=== PATIENT | male | born 1990 | race American Indian/Alaskan Native ===

== ENCOUNTER 2018-01-18 13:44 | Emergency (ER) | payer OTHER ==
--- NOTE | 2018-01-18 14:18 | Emergency Department Report ---
ED Altered Mental Status HPI - General Chief Complaint: Seizure Stated Complaint: SEIZURES Time Seen by Provider: 01/18/18 14:18 Source: EMS Mode of arrival: Stretcher Limitations: No Limitations - History of Present Illness Initial Comments: History of witnessed seizure tonic-clonic possible noncompliance possible Prior history here for evaluation of altered mental status patient arrives nonverbal but with good airway not following commands combative possibly postictal status post possible tonic-clonic seizure with noncompliance with Nadia RHOADES Complaint: altered mental status, confusion, other (postictal) -: Gradual, hour(s), unknown Severity: mild, moderate Associated Symptoms: denies other symptoms. denies: chest pain, cough, diaphoresis, fever/chills, headaches, malaise, nausea/vomiting, rash, seizure, shortness of breath, syncope, weakness, foul smelling urine, difficulty walking , diarrhea, incontinence - Related Data Allergies Allergy/AdvReac Type Severity Reaction Status Date / Time Unable to Assess Allergy Unverified 01/18/18 14:11 ED Review of Systems ROS: Stated complaint: SEIZURES Other details as noted in HPI Comment: Unobtainable due to pts medical conditions (denies trauma patient was initially postictal but did become awake and alert and denied other review of systems) Constitutional: denies: diaphoresis, fever, malaise ENT: denies: ear pain, throat pain, dental pain, hearing loss Respiratory: denies: cough, orthopnea Cardiovascular: denies: chest pain, palpitations, dyspnea on exertion, orthopnea , syncope, paroxysmal nocturnal dyspnea Endocrine: denies: excessive sweating, increased hunger, increased thirst, increased urine Gastrointestinal: denies: constipation, hematemesis, melena, hematochezia Skin: denies: rash, lesions, change in color, change in hair/nails, pruritus Neurological: denies: headache, weakness, numbness, paresthesias, confusion, abnormal gait, vertigo ED Physical Exam - General Limitations: No Limitations General appearance: alert, in no apparent distress, anxious - Head Head exam: Present: atraumatic, normocephalic - Eye Eye exam: Present: PERRL, EOMI - ENT ENT exam: Present: normal exam, normal orophraynx - Neck Neck exam: Present: normal inspection. Absent: tenderness, meningismus - Respiratory Respiratory exam: Present: normal lung sounds bilaterally. Absent: respiratory distress, wheezes, rales, rhonchi, stridor, chest wall tenderness, accessory muscle use, decreased breath sounds, prolonged expiratory - Cardiovascular Cardiovascular Exam: Present: regular rate, normal rhythm. Absent: normal heart sounds, systolic murmur, diastolic murmur, rubs, gallop - GI/Abdominal GI/Abdominal exam: Present: soft. Absent: distended, tenderness, guarding, rebound, rigid, mass, pulsatile mass - Extremities Exam Extremities exam: Present: normal inspection, normal capillary refill, other ( no trauma). Absent: pedal edema, joint swelling - Back Exam Back exam: Present: normal inspection, CVA tenderness (L). Absent: CVA tenderness (R), paraspinal tenderness, vertebral tenderness - Neurological Exam Neurological exam: Present: alert, oriented X3, CN II-XII intact. Absent: motor sensory deficit - Skin Skin exam: Absent: cyanosis, diaphoretic, erythema, urticaria, vesicles, petechiae, pallor - Assessment Assessment Interval: Baseline - Level of Consciousness 1a. Level of Consciousness: alert - LOC Questions 1b. LOC Questions: answers correctly - LOC Command 1c. LOC Commands: performs tasks correctly - Best Gaze 2. Best Gaze: normal - Visual 3. Visual: no visual loss - Facial Palsy 4. Facial Palsy: normal symmetrical movement - Motor Arm 5b. Motor Arm Right: no drift 5a. Motor Arm Left: no drift - Motor Leg 6a. Motor Leg Left: no drift 6b. Motor Leg Right: no drift - Limb Ataxia 7. Limb Ataxia: absent - Sensory 8. Sensory: normal - Best Language 9. Best Language: no aphasia - Dysarthria 10. Dysarthria: normal - Extinction and Inattention 11. Extinction/Inattention: no abnormality - Scoring Total Score: 0 Stroke Severity: No Stroke Symptoms - Lab Data Result diagrams: 01/18/18 14:49 01/18/18 16:36 Lab Results 01/18/18 01/18/18 01/18/18 Range/Units 14:36 14:49 16:36 WBC 18.9 H (4.5-11.0) K/mm3 RBC 5.96 H (3.65-5.03) M/mm3 Hgb 17.3 H (11.8-15.2) gm/dl Hct 54.5 H (35.5-45.6) % MCV 92 (84-94) fl MCH 29 (28-32) pg MCHC 32 (32-34) % RDW 15.0 (13.2-15.2) % Plt Count 181 (140-440) K/mm3 Sodium 135 L (137-145) mmol/L Potassium 4.3 (3.6-5.0) mmol/L Chloride 101.0 (98-107) mmol/L Carbon Dioxide 16 L (22-30) mmol/L Anion Gap 22 mmol/L BUN 14 (9-20) mg/dL Creatinine 1.0 (0.8-1.5) mg/dL Estimated GFR > 60 ml/min BUN/Creatinine Ratio 14 % Glucose 94 (75-100) mg/dL POC Glucose 117 H (70-105) Calcium 9.4 (8.4-10.2) mg/dL Total Creatine Kinase (55-170) units/L Plasma/Serum Alcohol (0-0.07) % 01/18/18 01/18/18 Range/Units 16:36 16:36 WBC (4.5-11.0) K/mm3 RBC (3.65-5.03) M/mm3 Hgb (11.8-15.2) gm/dl Hct (35.5-45.6) % MCV (84-94) fl MCH (28-32) pg MCHC (32-34) % RDW (13.2-15.2) % Plt Count (140-440) K/mm3 Sodium (137-145) mmol/L Potassium (3.6-5.0) mmol/L Chloride (98-107) mmol/L Carbon Dioxide (22-30) mmol/L Anion Gap mmol/L BUN (9-20) mg/dL Creatinine (0.8-1.5) mg/dL Estimated GFR ml/min BUN/Creatinine Ratio % Glucose (75-100) mg/dL POC Glucose (70-105) Calcium (8.4-10.2) mg/dL Total Creatine Kinase 261 H (55-170) units/L Plasma/Serum Alcohol < 0.01 (0-0.07) % - Radiology Data Radiology results: report reviewed - Medical Decision Making Patient does have a history of tonic-clonic seizure disorder he does have history of noncompliance he had 2 witnessed seizures but is awake alert male. He was loaded Keppra, CT is unremarkable except for some sinus disease. Patient had a normal evaluation otherwise. Laboratory studies were essentially unremarkable Her keppra level is pending. Patient is no evidence of rhabdo at this time he does have mild CK elevation was is consistent with tonic-clonic seizure normal renal function ;elevated WBC is related to seizure activity but no evidence of meningitis he is afebrile seizure is consistent with his chronic underlying seizure disorder with noncompliance. He states that he just moved here from [place] and they were unable to refill his Keppra we will refill his Keppra and he should follow-up with the on-call doctor and return if problems, a and o x 3 adn stable outptp f/u Critical care attestation.: If time is entered above; I have spent that time in minutes in the direct care of this critically ill patient, excluding procedure time. ED Disposition Clinical Impression: Seizure, Noncompliance Disposition: DC-01 TO HOME OR SELFCARE Is pt being admited?: No Condition: Stable Instructions: Recurrent Seizures Adult (ED) Additional Instructions: Return if new or alarming symptoms call 911 take her medicine see the doctor listed Time of Disposition: 19:33
[2018-01-18] MEDS ORDERED: VERSED IV NR (15:00)
[2018-01-18] MEDS ORDERED: KEPPRA 500 MG/NS 0.82% 100 ML 500 MG/100 ML BAG IV ONE ×2 (15:00→18:46)
[2018-01-18 15:14] LABS: Hematocrit 54.5 % (35.5-45.6); Hemoglobin 17.3 gm/dl (11.8-15.2); Mean Corpuscular HGB Conc 32 % (32-34); Mean Corpuscular Hemoglobin 29 pg (28-32); Mean Corpuscular Volume 92 fl (84-94); Red Blood Count 5.96 M/mm3 (3.65-5.03)
[2018-01-18 15:17] LABS: Platelet Count 181 K/mm3 (140-440)
--- NOTE | 2018-01-18 15:56 | Cat Scan Report ---
FINAL REPORT PROCEDURE: CT HEAD/BRAIN WO CON TECHNIQUE: Computerized tomography of the head was performed without contrast material. HISTORY: Altered mental status COMPARISON: No prior studies are available for comparison. FINDINGS: Brain: Brain density appears normal. No evidence of intracranial hemorrhage. No parenchymal hemorrhage, mass lesions or mass effect are seen. No abnormal extraxial fluid collects or masses are seen. There is a small amount of nonspecific dural calcification visualized right parietal lobe posteriorly. Ventricles: Ventricles are normal size and are midline. Bone Windows: No evidence of skull fracture. Paranasal sinuses: There is [id number] mucosal thickening in the left frontal sinus. There also appears to be a small air-fluid level suggesting acute sinusitis. Mild patchy mucosal disease seen in a few of the ethmoid air cells and also in the sphenoid sinuses. There is mucosal thickening seen in the maxillary sinuses however only a small portion of the maxillary sinuses are included on this exam. Mastoid air cells: Clear . IMPRESSION: Diffuse paranasal sinus disease as described. An air-fluid level however is seen in the left frontal sinus which suggests acute sinusitis. Please see above comments. Mild nonspecific dural calcification right parietal lobe posteriorly. No acute intracranial abnormalities are identified.
[2018-01-18 16:58] LABS: BUN/Creatinine Ratio 14; Blood Urea Nitrogen 14 mg/dL (9-20); Calcium 9.4 mg/dL (8.4-10.2); Hemolysis Index 59
[2018-01-18] MEDS ORDERED: LEVAQUIN 500MG/100ML 500 MG/100 ML BAG IV ONE (17:27)
[2018-01-18] MEDS ORDERED: TYLENOL ONE (18:43)
[2018-01-18] MEDS ORDERED: TYLENOL PO ONE (18:46)
[2018-01-18] MEDS ORDERED: KEPPRA PO ONE (18:48)
[2018-01-18 22:27] VITALS: BP 125/77
== END 2018-01-18 20:30 | disposition home or self-care (01) ==
LOC: ED 13:44
DX: R56.9 Unspecified convulsions (principal)
CPT/HCPCS: 36415; 70450; 80048; 80177; 82550; 82962; 85027; 96374; 96375; 96376; 99284; G0480; J1953; J2250; 80320

== ENCOUNTER 2018-02-27 20:49 | Inpatient (IN) | payer OTHER ==
[2018-02-27] MEDS ORDERED: KEPPRA 1,000 MG/NS 0.75% 100ML 1,000 MG/100 ML BAG IV ONE (20:59)
--- NOTE | 2018-02-27 21:04 | Emergency Department Report ---
ED Seizure HPI - General Stated Complaint: SEIZURE Time Seen by Provider: 02/27/18 20:56 Source: EMS Mode of arrival: Stretcher Limitations: Altered Mental Status - History of Present Illness Initial Comments: 27-year-old male with a past medical history of seizures presents to the hospital after having 2 seizures prior to arrival. EMS received a call for seizure. Patient was combative upon their arrival. Received Versed 5 mg IM and had another seizure and therefore received another Versed 5 mg IM. Both seizures lasted just over 1 minute. Patient presents lethargic but withdraws to pain. He apparently is new to the area has been noncompliant with his seizure medication - Related Data Previous Rx's Medication Instructions Recorded Last Taken Type levETIRAcetam [Keppra] 500 mg PO BID #30 tablet 01/18/18 Unknown Rx Allergies Allergy/AdvReac Type Severity Reaction Status Date / Time Penicillins Allergy Hives Verified 02/27/18 21:10 ED Review of Systems ROS: Stated complaint: SEIZURE Other details as noted in HPI Comment: All other systems reviewed and negative ED Past Medical Hx - Past Medical History Hx Seizures: Yes - Medications Home Medications: Home Medications Medication Instructions Recorded Confirmed Last Taken Type levETIRAcetam [Keppra] 500 mg PO BID #30 tablet 01/18/18 Unknown Rx ED Physical Exam - Other Other exam information: General: Lethargic Head exam: Atraumatic, normocephalic Eyes exam: Normal appearance, pupils equal reactive to light ENT: Moist mucous membrane, normal oropharynx Neck exam: Normal inspection, full range of motion Respiratory exam: Clear to auscultation bilateral, no wheezes, rales, crackles Cardiovascular: Normal rate and rhythm, normal heart sounds Abdomen: Soft, nondistended, and nontender, with normal bowel sounds, no rebound, or guarding Extremity: Full range of motion normal inspection no deformity Back: Normal Inspection, full range of motion, no tenderness Neurologic: Lethargic, localizes pain. Does not open eyes spontaneously or speaking at this time Psychiatric: normal affect, normal mood Skin: Warm, dry, intact ED Course Vital Signs 02/27/18 02/27/18 02/27/18 20:50 21:01 21:15 Temperature Pulse Rate 83 93 H 107 H Respiratory 34 H 18 25 H Rate Blood Pressure 111/47 O2 Sat by Pulse 93 99 100 Oximetry 02/27/18 02/27/18 02/27/18 21:30 21:52 22:00 Temperature Pulse Rate 104 H 99 H 93 H Respiratory 18 17 16 Rate Blood Pressure 111/47 111/41 112/65 O2 Sat by Pulse Oximetry 02/27/18 02/27/18 02/27/18 23:00 23:15 23:30 Temperature Pulse Rate 86 84 81 Respiratory 16 15 16 Rate Blood Pressure 112/56 113/57 118/68 O2 Sat by Pulse 99 100 99 Oximetry 02/27/18 02/27/18 02/28/18 23:44 23:45 00:00 Temperature 98.2 F Pulse Rate 79 80 Respiratory 18 17 Rate Blood Pressure 128/67 131/68 O2 Sat by Pulse 97 98 Oximetry 02/28/18 02/28/18 02/28/18 00:15 00:30 00:45 Temperature Pulse Rate 83 81 78 Respiratory 16 17 16 Rate Blood Pressure 111/68 111/63 116/58 O2 Sat by Pulse 95 93 Oximetry 02/28/18 02/28/18 01:00 01:15 Temperature Pulse Rate 76 75 Respiratory 14 15 Rate Blood Pressure 112/56 122/65 O2 Sat by Pulse 96 100 Oximetry ED Medical Decision Making - Lab Data Result diagrams: 02/28/18 06:51 02/28/18 06:51 Lab Results 02/27/18 02/27/18 02/27/18 Range/Units 21:11 21:11 21:11 WBC 29.3 H (4.5-11.0) K/mm3 RBC 5.77 H (3.65-5.03) M/mm3 Hgb 16.9 H (11.8-15.2) gm/dl Hct 55.5 H (35.5-45.6) % MCV 96 H (84-94) fl MCH 29 (28-32) pg MCHC 31 L (32-34) % RDW 15.4 H (13.2-15.2) % Plt Count 314 (140-440) K/mm3 Add Manual Diff Complete Total Counted 200 Seg Neuts % (Manual) 74.0 H (40.0-70.0) % Band Neutrophils % 2.5 % Lymphocytes % (Manual) 12.0 L (13.4-35.0) % Reactive Lymphs % (Man) 0 % Monocytes % (Manual) 10.0 H (0.0-7.3) % Eosinophils % (Manual) 0.5 (0.0-4.3) % Basophils % (Manual) 0.5 (0.0-1.8) % Metamyelocytes % 0.5 % Myelocytes % 0 % Promyelocytes % 0 % Blast Cells % 0 % Nucleated RBC % Not Reportable Seg Neutrophils # Man 21.7 H (1.8-7.7) K/mm3 Band Neutrophils # 0.7 K/mm3 Lymphocytes # (Manual) 3.5 (1.2-5.4) K/mm3 Abs React Lymphs (Man) 0.0 K/mm3 Monocytes # (Manual) 2.9 H (0.0-0.8) K/mm3 Eosinophils # (Manual) 0.1 (0.0-0.4) K/mm3 Basophils # (Manual) 0.1 (0.0-0.1) K/mm3 Metamyelocytes # 0.1 K/mm3 Myelocytes # 0.0 K/mm3 Promyelocytes # 0.0 K/mm3 Blast Cells # 0.0 K/mm3 WBC Morphology Not Reportable Hypersegmented Neuts Not Reportable Hyposegmented Neuts Not Reportable Hypogranular Neuts Not Reportable Smudge Cells Not Reportable Toxic Granulation Not Reportable Toxic Vacuolation Not Reportable Dohle Bodies Not Reportable Pelger-Huet Anomaly Not Reportable Alexander Rods Not Reportable Platelet Estimate Appears normal Clumped Platelets Not Reportable Plt Clumps, EDTA Not Reportable Large Platelets Not Reportable Giant Platelets Not Reportable Platelet Satelliting Not Reportable Plt Morphology Comment Not Reportable RBC Morphology Normal Dimorphic RBCs Not Reportable Polychromasia Not Reportable Hypochromasia Not Reportable Poikilocytosis Not Reportable Anisocytosis Not Reportable Microcytosis Not Reportable Macrocytosis Not Reportable Spherocytes Not Reportable Pappenheimer Bodies Not Reportable Sickle Cells Not Reportable Target Cells Not Reportable Tear Drop Cells Not Reportable Ovalocytes Not Reportable Helmet Cells Not Reportable Pérez-[place] Bodies Not Reportable [place] Rings Not Reportable Abram Cells Not Reportable Bite Cells Not Reportable Crenated Cell Not Reportable Elliptocytes Not Reportable Acanthocytes (Spur) Not Reportable Rouleaux Not Reportable Hemoglobin C Crystals Not Reportable Schistocytes Not Reportable Malaria parasites Not Reportable Alvaro Bodies Not Reportable Hem Pathologist Commnt No POC ABG pH (7.35-7.45) POC ABG pCO2 (35-45) POC ABG pO2 (80-105) POC ABG HCO3 POC ABG Total CO2 POC ABG O2 Sat POC ABG Base Excess FiO2 % Sodium 137 (137-145) mmol/L Potassium 4.5 (3.6-5.0) mmol/L Chloride 90.2 L (98-107) mmol/L Carbon Dioxide 5 L* (22-30) mmol/L Anion Gap 46 mmol/L BUN 12 (9-20) mg/dL Creatinine 1.6 H (0.8-1.5) mg/dL Estimated GFR > 60 ml/min BUN/Creatinine Ratio 8 % Glucose 141 H (75-100) mg/dL POC Glucose (70-105) Lactic Acid (0.7-2.0) mmol/L Calcium 10.3 H (8.4-10.2) mg/dL Magnesium 3.70 H (1.7-2.3) mg/dL Total Creatine Kinase (55-170) units/L Urine Color (Yellow) Urine Turbidity (Clear) Urine pH (5.0-7.0) Ur Specific [place] (1.003-1.030) Urine Protein (Negative) mg/dL Urine Glucose (UA) (Negative) mg/dL Urine Ketones (Negative) mg/dL Urine Blood (Negative) Urine Nitrite (Negative) Urine Bilirubin (Negative) Urine Urobilinogen (<2.0) mg/dL Ur Leukocyte Esterase (Negative) Urine WBC (Auto) (0.0-6.0) /HPF Urine RBC (Auto) (0.0-6.0) /HPF U Epithel Cells (Auto) (0-13.0) /HPF Urine Mucus /HPF Urine Opiates Screen Urine Methadone Screen Ur Barbiturates Screen Ur Phencyclidine Scrn Ur Amphetamines Screen U Benzodiazepines Scrn Urine Cocaine Screen U Marijuana (THC) Screen Drugs of Abuse Note Plasma/Serum Alcohol < 0.01 (0-0.07) % 02/27/18 02/27/18 02/27/18 Range/Units 21:13 21:50 22:08 WBC (4.5-11.0) K/mm3 RBC (3.65-5.03) M/mm3 Hgb (11.8-15.2) gm/dl Hct (35.5-45.6) % MCV (84-94) fl MCH (28-32) pg MCHC (32-34) % RDW (13.2-15.2) % Plt Count (140-440) K/mm3 Add Manual Diff Total Counted Seg Neuts % (Manual) (40.0-70.0) % Band Neutrophils % % Lymphocytes % (Manual) (13.4-35.0) % Reactive Lymphs % (Man) % Monocytes % (Manual) (0.0-7.3) % Eosinophils % (Manual) (0.0-4.3) % Basophils % (Manual) (0.0-1.8) % Metamyelocytes % % Myelocytes % % Promyelocytes % % Blast Cells % % Nucleated RBC % Seg Neutrophils # Man (1.8-7.7) K/mm3 Band Neutrophils # K/mm3 Lymphocytes # (Manual) (1.2-5.4) K/mm3 Abs React Lymphs (Man) K/mm3 Monocytes # (Manual) (0.0-0.8) K/mm3 Eosinophils # (Manual) (0.0-0.4) K/mm3 Basophils # (Manual) (0.0-0.1) K/mm3 Metamyelocytes # K/mm3 Myelocytes # K/mm3 Promyelocytes # K/mm3 Blast Cells # K/mm3 WBC Morphology Hypersegmented Neuts Hyposegmented Neuts Hypogranular Neuts Smudge Cells Toxic Granulation Toxic Vacuolation Dohle Bodies Pelger-Huet Anomaly Alexander Rods Platelet Estimate Clumped Platelets Plt Clumps, EDTA Large Platelets Giant Platelets Platelet Satelliting Plt Morphology Comment RBC Morphology Dimorphic RBCs Polychromasia Hypochromasia Poikilocytosis Anisocytosis Microcytosis Macrocytosis Spherocytes Pappenheimer Bodies Sickle Cells Target Cells Tear Drop Cells Ovalocytes Helmet Cells Pérez-[place] Bodies [place] Rings [place] Cells Bite Cells Crenated Cell Elliptocytes Acanthocytes (Spur) Rouleaux Hemoglobin C Crystals Schistocytes Malaria parasites Alvaro Bodies Hem Pathologist Commnt POC ABG pH (7.35-7.45) POC ABG pCO2 (35-45) POC ABG pO2 (80-105) POC ABG HCO3 POC ABG Total CO2 POC ABG O2 Sat POC ABG Base Excess FiO2 % Sodium (137-145) mmol/L Potassium (3.6-5.0) mmol/L Chloride (98-107) mmol/L Carbon Dioxide (22-30) mmol/L Anion Gap mmol/L BUN (9-20) mg/dL Creatinine (0.8-1.5) mg/dL Estimated GFR ml/min BUN/Creatinine Ratio % Glucose (75-100) mg/dL POC Glucose 128 H (70-105) Lactic Acid 12.10 H* (0.7-2.0) mmol/L Calcium (8.4-10.2) mg/dL Magnesium (1.7-2.3) mg/dL Total Creatine Kinase 874 H (55-170) units/L Urine Color (Yellow) Urine Turbidity (Clear) Urine pH (5.0-7.0) Ur Specific [place] (1.003-1.030) Urine Protein (Negative) mg/dL Urine Glucose (UA) (Negative) mg/dL Urine Ketones (Negative) mg/dL Urine Blood (Negative) Urine Nitrite (Negative) Urine Bilirubin (Negative) Urine Urobilinogen (<2.0) mg/dL Ur Leukocyte Esterase (Negative) Urine WBC (Auto) (0.0-6.0) /HPF Urine RBC (Auto) (0.0-6.0) /HPF U Epithel Cells (Auto) (0-13.0) /HPF Urine Mucus /HPF Urine Opiates Screen Urine Methadone Screen Ur Barbiturates Screen Ur Phencyclidine Scrn Ur Amphetamines Screen U Benzodiazepines Scrn Urine Cocaine Screen U Marijuana (THC) Screen Drugs of Abuse Note Plasma/Serum Alcohol (0-0.07) % 02/27/18 02/27/18 02/27/18 Range/Units 22:29 22:50 22:50 WBC (4.5-11.0) K/mm3 RBC (3.65-5.03) M/mm3 Hgb (11.8-15.2) gm/dl Hct (35.5-45.6) % MCV (84-94) fl MCH (28-32) pg MCHC (32-34) % RDW (13.2-15.2) % Plt Count (140-440) K/mm3 Add Manual Diff Total Counted Seg Neuts % (Manual) (40.0-70.0) % Band Neutrophils % % Lymphocytes % (Manual) (13.4-35.0) % Reactive Lymphs % (Man) % Monocytes % (Manual) (0.0-7.3) % Eosinophils % (Manual) (0.0-4.3) % Basophils % (Manual) (0.0-1.8) % Metamyelocytes % % Myelocytes % % Promyelocytes % % Blast Cells % % Nucleated RBC % Seg Neutrophils # Man (1.8-7.7) K/mm3 Band Neutrophils # K/mm3 Lymphocytes # (Manual) (1.2-5.4) K/mm3 Abs React Lymphs (Man) K/mm3 Monocytes # (Manual) (0.0-0.8) K/mm3 Eosinophils # (Manual) (0.0-0.4) K/mm3 Basophils # (Manual) (0.0-0.1) K/mm3 Metamyelocytes # K/mm3 Myelocytes # K/mm3 Promyelocytes # K/mm3 Blast Cells # K/mm3 WBC Morphology Hypersegmented Neuts Hyposegmented Neuts Hypogranular Neuts Smudge Cells Toxic Granulation Toxic Vacuolation Dohle Bodies Pelger-Huet Anomaly Alexander Rods Platelet Estimate Clumped Platelets Plt Clumps, EDTA Large Platelets Giant Platelets Platelet Satelliting Plt Morphology Comment RBC Morphology Dimorphic RBCs Polychromasia Hypochromasia Poikilocytosis Anisocytosis Microcytosis Macrocytosis Spherocytes Pappenheimer Bodies Sickle Cells Target Cells Tear Drop Cells Ovalocytes Helmet Cells Pérez-[place] Bodies [place] Rings [place] Cells Bite Cells Crenated Cell Elliptocytes Acanthocytes (Spur) Rouleaux Hemoglobin C Crystals Schistocytes Malaria parasites Alvaro Bodies Hem Pathologist Commnt POC ABG pH 7.231 L (7.35-7.45) POC ABG pCO2 40.5 (35-45) POC ABG pO2 80 (80-105) POC ABG HCO3 17.0 POC ABG Total CO2 18 POC ABG O2 Sat 93 POC ABG Base Excess -11 FiO2 32 % Sodium (137-145) mmol/L Potassium (3.6-5.0) mmol/L Chloride (98-107) mmol/L Carbon Dioxide (22-30) mmol/L Anion Gap mmol/L BUN (9-20) mg/dL Creatinine (0.8-1.5) mg/dL Estimated GFR ml/min BUN/Creatinine Ratio % Glucose (75-100) mg/dL POC Glucose (70-105) Lactic Acid (0.7-2.0) mmol/L Calcium (8.4-10.2) mg/dL Magnesium (1.7-2.3) mg/dL Total Creatine Kinase (55-170) units/L Urine Color Yellow (Yellow) Urine Turbidity Clear (Clear) Urine pH 5.0 (5.0-7.0) Ur Specific [place] 1.011 (1.003-1.030) Urine Protein 100 mg/dl (Negative) mg/dL Urine Glucose (UA) Neg (Negative) mg/dL Urine Ketones Neg (Negative) mg/dL Urine Blood Mod (Negative) Urine Nitrite Neg (Negative) Urine Bilirubin Neg (Negative) Urine Urobilinogen < 2.0 (<2.0) mg/dL Ur Leukocyte Esterase Neg (Negative) Urine WBC (Auto) 5.0 (0.0-6.0) /HPF Urine RBC (Auto) 2.0 (0.0-6.0) /HPF U Epithel Cells (Auto) < 1.0 (0-13.0) /HPF Urine Mucus Few /HPF Urine Opiates Screen Presumptive negative Urine Methadone Screen Presumptive negative Ur Barbiturates Screen Presumptive negative Ur Phencyclidine Scrn Presumptive negative Ur Amphetamines Screen Presumptive negative U Benzodiazepines Scrn Presumptive positive Urine Cocaine Screen Presumptive positive U Marijuana (THC) Screen Presumptive positive Drugs of Abuse Note Disclamer Plasma/Serum Alcohol (0-0.07) % 02/27/18 Range/Units 23:39 WBC (4.5-11.0) K/mm3 RBC (3.65-5.03) M/mm3 Hgb (11.8-15.2) gm/dl Hct (35.5-45.6) % MCV (84-94) fl MCH (28-32) pg MCHC (32-34) % RDW (13.2-15.2) % Plt Count (140-440) K/mm3 Add Manual Diff Total Counted Seg Neuts % (Manual) (40.0-70.0) % Band Neutrophils % % Lymphocytes % (Manual) (13.4-35.0) % Reactive Lymphs % (Man) % Monocytes % (Manual) (0.0-7.3) % Eosinophils % (Manual) (0.0-4.3) % Basophils % (Manual) (0.0-1.8) % Metamyelocytes % % Myelocytes % % Promyelocytes % % Blast Cells % % Nucleated RBC % Seg Neutrophils # Man (1.8-7.7) K/mm3 Band Neutrophils # K/mm3 Lymphocytes # (Manual) (1.2-5.4) K/mm3 Abs React Lymphs (Man) K/mm3 Monocytes # (Manual) (0.0-0.8) K/mm3 Eosinophils # (Manual) (0.0-0.4) K/mm3 Basophils # (Manual) (0.0-0.1) K/mm3 Metamyelocytes # K/mm3 Myelocytes # K/mm3 Promyelocytes # K/mm3 Blast Cells # K/mm3 WBC Morphology Hypersegmented Neuts Hyposegmented Neuts Hypogranular Neuts Smudge Cells Toxic Granulation Toxic Vacuolation Dohle Bodies Pelger-Huet Anomaly Alexander Rods Platelet Estimate Clumped Platelets Plt Clumps, EDTA Large Platelets Giant Platelets Platelet Satelliting Plt Morphology Comment RBC Morphology Dimorphic RBCs Polychromasia Hypochromasia Poikilocytosis Anisocytosis Microcytosis Macrocytosis Spherocytes Pappenheimer Bodies Sickle Cells Target Cells Tear Drop Cells Ovalocytes Helmet Cells Pérez-[place] Bodies [place] Rings Abram Cells Bite Cells Crenated Cell Elliptocytes Acanthocytes (Spur) Rouleaux Hemoglobin C Crystals Schistocytes Malaria parasites Alvaro Bodies Hem Pathologist Commnt POC ABG pH (7.35-7.45) POC ABG pCO2 (35-45) POC ABG pO2 (80-105) POC ABG HCO3 POC ABG Total CO2 POC ABG O2 Sat POC ABG Base Excess FiO2 % Sodium (137-145) mmol/L Potassium (3.6-5.0) mmol/L Chloride (98-107) mmol/L Carbon Dioxide (22-30) mmol/L Anion Gap mmol/L BUN (9-20) mg/dL Creatinine (0.8-1.5) mg/dL Estimated GFR ml/min BUN/Creatinine Ratio % Glucose (75-100) mg/dL POC Glucose (70-105) Lactic Acid 3.00 H* (0.7-2.0) mmol/L Calcium (8.4-10.2) mg/dL Magnesium (1.7-2.3) mg/dL Total Creatine Kinase (55-170) units/L Urine Color (Yellow) Urine Turbidity (Clear) Urine pH (5.0-7.0) Ur Specific [place] (1.003-1.030) Urine Protein (Negative) mg/dL Urine Glucose (UA) (Negative) mg/dL Urine Ketones (Negative) mg/dL Urine Blood (Negative) Urine Nitrite (Negative) Urine Bilirubin (Negative) Urine Urobilinogen (<2.0) mg/dL Ur Leukocyte Esterase (Negative) Urine WBC (Auto) (0.0-6.0) /HPF Urine RBC (Auto) (0.0-6.0) /HPF U Epithel Cells (Auto) (0-13.0) /HPF Urine Mucus /HPF Urine Opiates Screen Urine Methadone Screen Ur Barbiturates Screen Ur Phencyclidine Scrn Ur Amphetamines Screen U Benzodiazepines Scrn Urine Cocaine Screen U Marijuana (THC) Screen Drugs of Abuse Note Plasma/Serum Alcohol (0-0.07) % - Radiology Data Radiology results: report reviewed FINAL REPORT PROCEDURE: CT HEAD WO CONTRAST TECHNIQUE: Computerized tomography of the head was performed without contrast material. HISTORY: SEIZURE X2 LASTING APPROX 90 SECONDS EACH. COMPARISON: January 18, 2018 FINDINGS: Skull and scalp: Normal. Paranasal sinuses: Mucosal thickening. Ventricles and subarachnoid spaces: Normal. Cerebrum: No evidence of hemorrhage, acute infarction or mass . Cerebellum and brainstem: No evidence of hemorrhage, acute infarction or mass. Vasculature: Normal. Comments: Right parietal extra-axial calcification consistent with meningioma. IMPRESSION: No acute intracranial abnormality. Stable right-sided calcifications suggesting meningioma. cxr portable Cxr no acute cardiopulmonary abnormality - Medical Decision Making CT head unremarkable. Patient's mental status is slowly improving. Patient has a leukocytosis without focal source of infection. Suspect stress/multiple seizures to cause her to see. Lactic acid initially being down where it was a slightly elevated due to seizures as opposed to sepsis. UDS positive for multiple substances including cocaine which can lower seizure threshold as well. Pt received keppra in the Ed. Pt received Keppra. - Differential Diagnosis seizure, medication noncompliance, intracranial abnormality Critical Care Time: No Critical care attestation.: If time is entered above; I have spent that time in minutes in the direct care of this critically ill patient, excluding procedure time. ED Disposition Clinical Impression: Seizures, Noncompliance with medication regimen, Lactic acidosis, Leukocytosis , Cocaine abuse Disposition: OP ADMIT IP TO THIS HOSP Is pt being admited?: Yes Condition: Stable Time of Disposition: 23:00 (admit to hospitalist)
[2018-02-27 21:42] LABS: BUN/Creatinine Ratio 8; Blood Urea Nitrogen 12 mg/dL (9-20); Calcium 10.3 mg/dL (8.4-10.2); Hemolysis Index 94
[2018-02-27 21:47] LABS: Mean Corpuscular HGB Conc 31 % (32-34); Mean Corpuscular Hemoglobin 29 pg (28-32); Mean Corpuscular Volume 96 fl (84-94); Platelet Count 314 K/mm3 (140-440); Red Blood Count 5.77 M/mm3 (3.65-5.03); Red Cell Distribution Width 15.4 % (13.2-15.2)
[2018-02-27 21:48] LABS: Hemoglobin 16.9 gm/dl (11.8-15.2)
[2018-02-27 21:49] LABS: Hematocrit 55.5 % (35.5-45.6)
[2018-02-27] MEDS ORDERED: NACL 0.9% 1000 ML IV ONE (21:59)
[2018-02-27 22:32] LABS: Band Neutrophils # (Manual) 0.7 K/mm3; Basophils % (Manual) 0.5 % (0.0-1.8); Eosinophils % (Manual) 0.5 % (0.0-4.3); Total Cells Counted 200
[2018-02-27 22:46] LABS: RBC Morphology Normal
--- NOTE | 2018-02-27 22:48 | Cat Scan Report ---
FINAL REPORT PROCEDURE: CT HEAD WO CONTRAST TECHNIQUE: Computerized tomography of the head was performed without contrast material. HISTORY: SEIZURE X2 LASTING APPROX 90 SECONDS EACH. COMPARISON: January 18, 2018 FINDINGS: Skull and scalp: Normal. Paranasal sinuses: Mucosal thickening. Ventricles and subarachnoid spaces: Normal. Cerebrum: No evidence of hemorrhage, acute infarction or mass . Cerebellum and brainstem: No evidence of hemorrhage, acute infarction or mass. Vasculature: Normal. Comments: Right parietal extra-axial calcification consistent with meningioma. IMPRESSION: No acute intracranial abnormality. Stable right-sided calcifications suggesting meningioma.
--- NOTE | 2018-02-27 22:56 | XRay Report ---
FINAL REPORT PROCEDURE: XRAY CHEST SINGLE VIEW TECHNIQUE: Chest radiograph anteroposterior view. CPT 97687 HISTORY: CENTRAL LINE PLACEMENT COMPARISON: No prior studies are available for comparison. FINDINGS: Heart: Normal. Mediastinum/Vessels: Normal. Lungs/Pleural space: Normal. Bony thorax: No acute osseous abnormality. Life support devices: Monitoring devices. IMPRESSION: No acute cardiopulmonary abnormality.
[2018-02-27] MEDS ORDERED: ATIVAN IV PRN (23:41)
[2018-02-27] MEDS ORDERED: SODIUM CHLORIDE FLUSH SYRINGE 10 ML IV PRN (23:41)
[2018-02-27] MEDS ORDERED: ZOFRAN IV PRN (23:41)
--- NOTE | 2018-02-27 23:43 | History and Physical Report ---
History of Present Illness Date of examination: 02/27/18 History of present illness: 27 year old man with history of seizures comes to the ER for seizure at home, It was reported that he had 2 seizures, versed 5 mg was given twice. Nuse reported that the patient is from [place], he ran out of his seizure medications. Review of systems is unobtainable. PAST MEDICAL HISTORY: seizure PAST SURGICAL HISTORY: Unknown SOCIAL HISTORY: Unknown FAMILY HISTORY:n Unknown Medications and Allergies Allergies Allergy/AdvReac Type Severity Reaction Status Date / Time Penicillins Allergy Hives Verified 02/27/18 21:10 Home Medications Medication Instructions Recorded Confirmed Last Taken Type levETIRAcetam [Keppra] 500 mg PO BID #30 tablet 01/18/18 Unknown Rx Exam - Physical Exam Narrative exam: Gen. appearance: Patient lying in bed, no apparent distress HEENT: Normocephalic, atraumatic, pupils equally round and reactive to light, unable to do extraocular movement and no sclericterus,. No JVD or thyromegaly or nodule,neck supple, no carotid bruit ,mucous membranes moist, unable to examine oral cavity Heart: S1, S2, regular rate and rhythm Lungs: Clear bilaterally, breathing comfortable Abdomen: Positive bowel sounds, nontender, nondistended, no organomegaly Extremity: No edema, no cyanosis, clubbing Skin: No rash, nodules, warm, dry Neuro: sedated - Constitutional Vitals: Temp Pulse Resp BP Pulse Ox 93 H 16 112/65 100 02/27/18 22:00 02/27/18 22:00 02/27/18 22:00 02/27/18 21:15 Results - Labs CBC & Chem 7: 02/27/18 21:11 02/28/18 00:04 Labs: Abnormal lab results 02/27/18 02/27/18 02/27/18 Range/Units 21:11 21:11 21:13 WBC 29.3 H (4.5-11.0) K/mm3 RBC 5.77 H (3.65-5.03) M/mm3 Hgb 16.9 H (11.8-15.2) gm/dl Hct 55.5 H (35.5-45.6) % MCV 96 H (84-94) fl MCHC 31 L (32-34) % RDW 15.4 H (13.2-15.2) % Seg Neuts % (Manual) 74.0 H (40.0-70.0) % Lymphocytes % (Manual) 12.0 L (13.4-35.0) % Monocytes % (Manual) 10.0 H (0.0-7.3) % Seg Neutrophils # Man 21.7 H (1.8-7.7) K/mm3 Monocytes # (Manual) 2.9 H (0.0-0.8) K/mm3 POC ABG pH (7.35-7.45) Chloride 90.2 L (98-107) mmol/L Carbon Dioxide 5 L* (22-30) mmol/L Creatinine 1.6 H (0.8-1.5) mg/dL Glucose 141 H (75-100) mg/dL POC Glucose 128 H (70-105) Lactic Acid (0.7-2.0) mmol/L Calcium 10.3 H (8.4-10.2) mg/dL Magnesium 3.70 H (1.7-2.3) mg/dL Total Creatine Kinase (55-170) units/L 02/27/18 02/27/18 02/27/18 Range/Units 21:50 22:08 22:29 WBC (4.5-11.0) K/mm3 RBC (3.65-5.03) M/mm3 Hgb (11.8-15.2) gm/dl Hct (35.5-45.6) % MCV (84-94) fl MCHC (32-34) % RDW (13.2-15.2) % Seg Neuts % (Manual) (40.0-70.0) % Lymphocytes % (Manual) (13.4-35.0) % Monocytes % (Manual) (0.0-7.3) % Seg Neutrophils # Man (1.8-7.7) K/mm3 Monocytes # (Manual) (0.0-0.8) K/mm3 POC ABG pH 7.231 L (7.35-7.45) Chloride (98-107) mmol/L Carbon Dioxide (22-30) mmol/L Creatinine (0.8-1.5) mg/dL Glucose (75-100) mg/dL POC Glucose (70-105) Lactic Acid 12.10 H* (0.7-2.0) mmol/L Calcium (8.4-10.2) mg/dL Magnesium (1.7-2.3) mg/dL Total Creatine Kinase 874 H (55-170) units/L - Imaging and Cardiology EKG: image reviewed Chest x-ray: image reviewed CT Scan - head: report reviewed Assessment and Plan Assessment Seizure, acute on chronic SIRS Metabolic acidosis, due to seizure Rhabdomyolysis Dehydration Plan Admit to medicine Start IV ativan as needed for seizure Start IV levaquin, IV fluid, follow culture Repeat BMP, restart keppra DVT prophalaxis
[2018-02-27 23:59] LABS: Amphetamine Screen,Urine PRESUMPTIVE NEGATIVE; Bilirubin,Urine NEG (Negative); Blood,Urine MOD (Negative); Color,Urine Yellow (Yellow); Methadone Screen,Urine PRESUMPTIVE NEGATIVE; Mucus,Urine FEW /HPF; Opiate Screen,Urine PRESUMPTIVE NEGATIVE; Urobilinogen,Urine < 2.0 mg/dL (<2.0)
[2018-02-28 00:23] LABS: Benzodiazepines Screen,Urine PRESUMPTIVE POSITIVE; Cannabinoid Screen,Urine PRESUMPTIVE POSITIVE; Cocaine Screen,Urine PRESUMPTIVE POSITIVE
[2018-02-28 00:56] LABS: BUN/Creatinine Ratio 8; Blood Urea Nitrogen 12 mg/dL (9-20); Calcium 8.9 mg/dL (8.4-10.2); Hemolysis Index 10
[2018-02-28] MEDS ORDERED: NACL 0.9% 1000 ML 1,000 ML ONE (01:07)
[2018-02-28] MEDS: NACL 0.9% 1000 ML 1,000 ML IV SCH ×2 (02:08→17:35)
[2018-02-28 07:25] LABS: Basophils # (Auto) 0.2 K/mm3 (0.0-0.1); Eosinophils # (Auto) 0.1 K/mm3 (0.0-0.4); Eosinophils % (Auto) 0.4 % (0.0-4.3); Hematocrit 41.8 % (35.5-45.6); Hemoglobin 14.1 gm/dl (11.8-15.2); Lymphocytes # (Auto) 1.3 K/mm3 (1.2-5.4); Lymphocytes % (Auto) 6.4 % (13.4-35.0); Mean Corpuscular HGB Conc 34 % (32-34); Mean Corpuscular Hemoglobin 30 pg (28-32); Mean Corpuscular Volume 89 fl (84-94); Monocytes % (Auto) 10.2 % (0.0-7.3); Platelet Count 231 K/mm3 (140-440); Red Blood Count 4.68 M/mm3 (3.65-5.03); Red Cell Distribution Width 14.2 % (13.2-15.2)
[2018-02-28] MEDS: TYLENOL PO PRN ×2 (07:30→12:38)
[2018-02-28 07:35] LABS: Calcium 8.2 mg/dL (8.4-10.2)
[2018-02-28] MEDS ORDERED: LOVENOX SUB-Q SCH (10:00)
[2018-02-28] MEDS: KEPPRA PO SCH ×2 (10:29→21:44)
[2018-02-28] MEDS: LEVAQUIN 750MG/150ML 750 MG/150 ML BAG IV SCH (10:29)
[2018-02-28] MEDS: LOVENOX SUB-Q SCH ×2 (10:30→10:37)
[2018-02-28] MEDS: SODIUM CHLORIDE FLUSH SYRINGE 10 ML IV SCH ×2 (10:31→21:44)
[2018-02-28] MEDS ORDERED: ULTRAM PO PRN (15:01)
--- NOTE | 2018-02-28 17:06 | Progress Note ---
Assessment and Plan Assessment and plan: --Seizures; acute on chronic Secondary to noncompliance, seizure precautions, continue Keppra. Neurology evaluation and EEG --Meningioma on CT head; probably the cause of the seizures Patient denies any knowledge of packed, check MRI brain neurology consult --Severe metabolic acidosis; probably secondary to seizure and polysubstance abuse, improving, vigorous IV fluids --Acute kidney injury; secondary to ATN Closely monitor, gentle hydration, avoid nephrotoxins --Leukocytosis; with lactic acidosis; rule out sepsis Empiric antibiotics, follow cultures --Medical noncompliance; consult and then patient strongly advised diet modification and exercise as tolerated and weight reduction --Polysubstance abuse; tobacco, marijuana, cocaine Counseled the patient and strongly advised to quit recreational drug use. --Rhabdomyolysis; probably secondary to polysubstance abuse and seizure Previous IV hydration, closely monitor CK levels and renal function --DVT prophylaxis with Lovenox. closely monitor the patient and adjust the management as needed Plan of care reviewed with patient and his nurse History Interval history: Patient seen and examined medical records reviewed Admitted with seizure episode secondary to noncompliance Patient feels better, reports that he cannot afford medications Alert awake oriented 3 Vital signs reviewed Complaints of generalized body pain and asks for some narcotic pain medications Hospitalist Physical - Constitutional Vitals: Temp Pulse Resp BP Pulse Ox 98.3 F 57 L 16 119/75 99 02/28/18 14:56 02/28/18 14:56 02/28/18 14:56 02/28/18 14:56 02/28/18 14:56 General appearance: Present: no acute distress, well-nourished - EENT Eyes: Present: PERRL, EOM intact - Neck Neck: Present: supple, normal ROM - Respiratory Respiratory effort: normal Respiratory: bilateral: diminished, negative: rales, rhonchi, wheezing - Cardiovascular Rhythm: regular Heart Sounds: Present: S1 & S2 - Extremities Extremities: no ischemia, No edema - Abdominal General gastrointestinal: soft, non-tender, non-distended, normal bowel sounds - Integumentary Integumentary: Present: clear, warm - Psychiatric Psychiatric: appropriate mood/affect, cooperative - Neurologic Neurologic: CNII-XII intact, moves all extremities Results - Labs CBC & Chem 7: 02/28/18 06:51 02/28/18 06:51 Labs: Laboratory Last Values WBC 19.7 K/mm3 (4.5-11.0) H 02/28/18 06:51 RBC 4.68 M/mm3 (3.65-5.03) 02/28/18 06:51 Hgb 14.1 gm/dl (11.8-15.2) 02/28/18 06:51 Hct 41.8 % (35.5-45.6) D 02/28/18 06:51 MCV 89 fl (84-94) 02/28/18 06:51 MCH 30 pg (28-32) 02/28/18 06:51 MCHC 34 % (32-34) 02/28/18 06:51 RDW 14.2 % (13.2-15.2) 02/28/18 06:51 Plt Count 231 K/mm3 (140-440) 02/28/18 06:51 Lymph % (Auto) 6.4 % (13.4-35.0) L 02/28/18 06:51 [place] % (Auto) 10.2 % (0.0-7.3) H 02/28/18 06:51 Eos % (Auto) 0.4 % (0.0-4.3) 02/28/18 06:51 Baso % (Auto) 1.0 % (0.0-1.8) 02/28/18 06:51 Lymph # 1.3 K/mm3 (1.2-5.4) 02/28/18 06:51 [place] # 2.0 K/mm3 (0.0-0.8) H 02/28/18 06:51 Eos # 0.1 K/mm3 (0.0-0.4) 02/28/18 06:51 Baso # 0.2 K/mm3 (0.0-0.1) H 02/28/18 06:51 Add Manual Diff Complete 02/27/18 21:11 Total Counted 200 02/27/18 21:11 Seg Neutrophils % 82.0 % (40.0-70.0) H 02/28/18 06:51 Seg Neuts % (Manual) 74.0 % (40.0-70.0) H 02/27/18 21:11 Band Neutrophils % 2.5 % 02/27/18 21:11 Lymphocytes % (Manual) 12.0 % (13.4-35.0) L 02/27/18 21:11 Reactive Lymphs % (Man) 0 % 02/27/18 21:11 Monocytes % (Manual) 10.0 % (0.0-7.3) H 02/27/18 21:11 Eosinophils % (Manual) 0.5 % (0.0-4.3) 02/27/18 21:11 Basophils % (Manual) 0.5 % (0.0-1.8) 02/27/18 21:11 Metamyelocytes % 0.5 % 02/27/18 21:11 Myelocytes % 0 % 02/27/18 21:11 Promyelocytes % 0 % 02/27/18 21:11 Blast Cells % 0 % 02/27/18 21:11 Nucleated RBC % Not Reportable 02/27/18 21:11 Seg Neutrophils # 16.1 K/mm3 (1.8-7.7) H 02/28/18 06:51 Seg Neutrophils # Man 21.7 K/mm3 (1.8-7.7) H 02/27/18 21:11 Band Neutrophils # 0.7 K/mm3 02/27/18 21:11 Lymphocytes # (Manual) 3.5 K/mm3 (1.2-5.4) 02/27/18 21:11 Abs React Lymphs (Man) 0.0 K/mm3 02/27/18 21:11 Monocytes # (Manual) 2.9 K/mm3 (0.0-0.8) H 02/27/18 21:11 Eosinophils # (Manual) 0.1 K/mm3 (0.0-0.4) 02/27/18 21:11 Basophils # (Manual) 0.1 K/mm3 (0.0-0.1) 02/27/18 21:11 Metamyelocytes # 0.1 K/mm3 02/27/18 21:11 Myelocytes # 0.0 K/mm3 02/27/18 21:11 Promyelocytes # 0.0 K/mm3 02/27/18 21:11 Blast Cells # 0.0 K/mm3 02/27/18 21:11 WBC Morphology Not Reportable 02/27/18 21:11 Hypersegmented Neuts Not Reportable 02/27/18 21:11 Hyposegmented Neuts Not Reportable 02/27/18 21:11 Hypogranular Neuts Not Reportable 02/27/18 21:11 Smudge Cells Not Reportable 02/27/18 21:11 Toxic Granulation Not Reportable 02/27/18 21:11 Toxic Vacuolation Not Reportable 02/27/18 21:11 Dohle Bodies Not Reportable 02/27/18 21:11 Pelger-Huet Anomaly Not Reportable 02/27/18 21:11 Alexander Rods Not Reportable 02/27/18 21:11 Platelet Estimate Appears normal 02/27/18 21:11 Clumped Platelets Not Reportable 02/27/18 21:11 Plt Clumps, EDTA Not Reportable 02/27/18 21:11 Large Platelets Not Reportable 02/27/18 21:11 Giant Platelets Not Reportable 02/27/18 21:11 Platelet Satelliting Not Reportable 02/27/18 21:11 Plt Morphology Comment Not Reportable 02/27/18 21:11 RBC Morphology Normal 02/27/18 21:11 Dimorphic RBCs Not Reportable 02/27/18 21:11 Polychromasia Not Reportable 02/27/18 21:11 Hypochromasia Not Reportable 02/27/18 21:11 Poikilocytosis Not Reportable 02/27/18 21:11 Anisocytosis Not Reportable 02/27/18 21:11 Microcytosis Not Reportable 02/27/18 21:11 Macrocytosis Not Reportable 02/27/18 21:11 Spherocytes Not Reportable 02/27/18 21:11 Pappenheimer Bodies Not Reportable 02/27/18 21:11 Sickle Cells Not Reportable 02/27/18 21:11 Target Cells Not Reportable 02/27/18 21:11 Tear Drop Cells Not Reportable 02/27/18 21:11 Ovalocytes Not Reportable 02/27/18 21:11 Helmet Cells Not Reportable 02/27/18 21:11 [place] Bodies Not Reportable 02/27/18 21:11 [place] Rings Not Reportable 02/27/18 21:11 [place] Cells Not Reportable 02/27/18 21:11 Bite Cells Not Reportable 02/27/18 21:11 Crenated Cell Not Reportable 02/27/18 21:11 Elliptocytes Not Reportable 02/27/18 21:11 Acanthocytes (Spur) Not Reportable 02/27/18 21:11 Rouleaux Not Reportable 02/27/18 21:11 Hemoglobin C Crystals Not Reportable 02/27/18 21:11 Schistocytes Not Reportable 02/27/18 21:11 Malaria parasites Not Reportable 02/27/18 21:11 Alvaro Bodies Not Reportable 02/27/18 21:11 Hem Pathologist Commnt No 02/27/18 21:11 POC ABG pH 7.231 (7.35-7.45) L 02/27/18 22:29 POC ABG pCO2 40.5 (35-45) 02/27/18 22:29 POC ABG pO2 80 (80-105) 02/27/18 22:29 POC ABG HCO3 17.0 02/27/18 22:29 POC ABG Total CO2 18 02/27/18 22:29 POC ABG O2 Sat 93 02/27/18 22:29 POC ABG Base Excess -11 02/27/18 22:29 FiO2 32 % 02/27/18 22:29 Sodium 134 mmol/L (137-145) L 02/28/18 06:51 Potassium 4.2 mmol/L (3.6-5.0) 02/28/18 06:51 Chloride 101.0 mmol/L (98-107) 02/28/18 06:51 Carbon Dioxide 17 mmol/L (22-30) L 02/28/18 06:51 Anion Gap 20 mmol/L 02/28/18 06:51 BUN 16 mg/dL (9-20) 02/28/18 06:51 Creatinine 2.0 mg/dL (0.8-1.5) H 02/28/18 06:51 Estimated GFR 50 ml/min 02/28/18 06:51 BUN/Creatinine Ratio 8 % 02/28/18 06:51 Glucose 80 mg/dL (75-100) 02/28/18 06:51 POC Glucose 128 (70-105) H 02/27/18 21:13 Lactic Acid 0.90 mmol/L (0.7-2.0) 02/28/18 06:51 Calcium 8.2 mg/dL (8.4-10.2) L 02/28/18 06:51 Magnesium 3.70 mg/dL (1.7-2.3) H 02/27/18 21:11 Total Creatine Kinase 874 units/L (55-170) H 02/27/18 21:50 Urine Color Yellow (Yellow) 02/27/18 22:50 Urine Turbidity Clear (Clear) 02/27/18 22:50 Urine pH 5.0 (5.0-7.0) 02/27/18 22:50 Ur Specific [place] 1.011 (1.003-1.030) 02/27/18 22:50 Urine Protein 100 mg/dl mg/dL (Negative) 02/27/18 22:50 Urine Glucose (UA) Neg mg/dL (Negative) 02/27/18 22:50 Urine Ketones Neg mg/dL (Negative) 02/27/18 22:50 Urine Blood Mod (Negative) 02/27/18 22:50 Urine Nitrite Neg (Negative) 02/27/18 22:50 Urine Bilirubin Neg (Negative) 02/27/18 22:50 Urine Urobilinogen < 2.0 mg/dL (<2.0) 02/27/18 22:50 Ur Leukocyte Esterase Neg (Negative) 02/27/18 22:50 Urine WBC (Auto) 5.0 /HPF (0.0-6.0) 02/27/18 22:50 Urine RBC (Auto) 2.0 /HPF (0.0-6.0) 02/27/18 22:50 U Epithel Cells (Auto) < 1.0 /HPF (0-13.0) 02/27/18 22:50 Urine Mucus Few /HPF 02/27/18 22:50 Urine Opiates Screen Presumptive negative 02/27/18 22:50 Urine Methadone Screen Presumptive negative 02/27/18 22:50 Ur Barbiturates Screen Presumptive negative 02/27/18 22:50 Ur Phencyclidine Scrn Presumptive negative 02/27/18 22:50 Ur Amphetamines Screen Presumptive negative 02/27/18 22:50 U Benzodiazepines Scrn Presumptive positive 02/27/18 22:50 Urine Cocaine Screen Presumptive positive 02/27/18 22:50 U Marijuana (THC) Screen Presumptive positive 02/27/18 22:50 Drugs of Abuse Note Disclamer 02/27/18 22:50 Plasma/Serum Alcohol < 0.01 % (0-0.07) 02/27/18 21:11
[2018-02-28] MEDS: PERCOCET 5/325 PO PRN ×2 (17:36→23:58)
[2018-03-01] MEDS: NACL 0.9% 1000 ML 1,000 ML IV SCH (06:16)
[2018-03-01 07:41] VITALS: BP 142/85
--- NOTE | 2018-03-01 11:29 | Progress Note ---
Hospitalist Physical - Constitutional Vitals: Temp Pulse Resp BP Pulse Ox 98.2 F 57 L 20 142/85 98 03/01/18 07:34 03/01/18 07:34 03/01/18 07:34 03/01/18 07:34 03/01/18 09:06 General appearance: Present: no acute distress, well-nourished Results - Labs CBC & Chem 7: 02/28/18 06:51 02/28/18 06:51 Labs: Laboratory Last Values WBC 19.7 K/mm3 (4.5-11.0) H 02/28/18 06:51 RBC 4.68 M/mm3 (3.65-5.03) 02/28/18 06:51 Hgb 14.1 gm/dl (11.8-15.2) 02/28/18 06:51 Hct 41.8 % (35.5-45.6) D 02/28/18 06:51 MCV 89 fl (84-94) 02/28/18 06:51 MCH 30 pg (28-32) 02/28/18 06:51 MCHC 34 % (32-34) 02/28/18 06:51 RDW 14.2 % (13.2-15.2) 02/28/18 06:51 Plt Count 231 K/mm3 (140-440) 02/28/18 06:51 Lymph % (Auto) 6.4 % (13.4-35.0) L 02/28/18 06:51 [place] % (Auto) 10.2 % (0.0-7.3) H 02/28/18 06:51 Eos % (Auto) 0.4 % (0.0-4.3) 02/28/18 06:51 Baso % (Auto) 1.0 % (0.0-1.8) 02/28/18 06:51 Lymph # 1.3 K/mm3 (1.2-5.4) 02/28/18 06:51 [place] # 2.0 K/mm3 (0.0-0.8) H 02/28/18 06:51 Eos # 0.1 K/mm3 (0.0-0.4) 02/28/18 06:51 Baso # 0.2 K/mm3 (0.0-0.1) H 02/28/18 06:51 Add Manual Diff Complete 02/27/18 21:11 Total Counted 200 02/27/18 21:11 Seg Neutrophils % 82.0 % (40.0-70.0) H 02/28/18 06:51 Seg Neuts % (Manual) 74.0 % (40.0-70.0) H 02/27/18 21:11 Band Neutrophils % 2.5 % 02/27/18 21:11 Lymphocytes % (Manual) 12.0 % (13.4-35.0) L 02/27/18 21:11 Reactive Lymphs % (Man) 0 % 02/27/18 21:11 Monocytes % (Manual) 10.0 % (0.0-7.3) H 02/27/18 21:11 Eosinophils % (Manual) 0.5 % (0.0-4.3) 02/27/18 21:11 Basophils % (Manual) 0.5 % (0.0-1.8) 02/27/18 21:11 Metamyelocytes % 0.5 % 02/27/18 21:11 Myelocytes % 0 % 02/27/18 21:11 Promyelocytes % 0 % 02/27/18 21:11 Blast Cells % 0 % 02/27/18 21:11 Nucleated RBC % Not Reportable 02/27/18 21:11 Seg Neutrophils # 16.1 K/mm3 (1.8-7.7) H 02/28/18 06:51 Seg Neutrophils # Man 21.7 K/mm3 (1.8-7.7) H 02/27/18 21:11 Band Neutrophils # 0.7 K/mm3 02/27/18 21:11 Lymphocytes # (Manual) 3.5 K/mm3 (1.2-5.4) 02/27/18 21:11 Abs React Lymphs (Man) 0.0 K/mm3 02/27/18 21:11 Monocytes # (Manual) 2.9 K/mm3 (0.0-0.8) H 02/27/18 21:11 Eosinophils # (Manual) 0.1 K/mm3 (0.0-0.4) 02/27/18 21:11 Basophils # (Manual) 0.1 K/mm3 (0.0-0.1) 02/27/18 21:11 Metamyelocytes # 0.1 K/mm3 02/27/18 21:11 Myelocytes # 0.0 K/mm3 02/27/18 21:11 Promyelocytes # 0.0 K/mm3 02/27/18 21:11 Blast Cells # 0.0 K/mm3 02/27/18 21:11 WBC Morphology Not Reportable 02/27/18 21:11 Hypersegmented Neuts Not Reportable 02/27/18 21:11 Hyposegmented Neuts Not Reportable 02/27/18 21:11 Hypogranular Neuts Not Reportable 02/27/18 21:11 Smudge Cells Not Reportable 02/27/18 21:11 Toxic Granulation Not Reportable 02/27/18 21:11 Toxic Vacuolation Not Reportable 02/27/18 21:11 Dohle Bodies Not Reportable 02/27/18 21:11 Pelger-Huet Anomaly Not Reportable 02/27/18 21:11 Alexander Rods Not Reportable 02/27/18 21:11 Platelet Estimate Appears normal 02/27/18 21:11 Clumped Platelets Not Reportable 02/27/18 21:11 Plt Clumps, EDTA Not Reportable 02/27/18 21:11 Large Platelets Not Reportable 02/27/18 21:11 Giant Platelets Not Reportable 02/27/18 21:11 Platelet Satelliting Not Reportable 02/27/18 21:11 Plt Morphology Comment Not Reportable 02/27/18 21:11 RBC Morphology Normal 02/27/18 21:11 Dimorphic RBCs Not Reportable 02/27/18 21:11 Polychromasia Not Reportable 02/27/18 21:11 Hypochromasia Not Reportable 02/27/18 21:11 Poikilocytosis Not Reportable 02/27/18 21:11 Anisocytosis Not Reportable 02/27/18 21:11 Microcytosis Not Reportable 02/27/18 21:11 Macrocytosis Not Reportable 02/27/18 21:11 Spherocytes Not Reportable 02/27/18 21:11 Pappenheimer Bodies Not Reportable 02/27/18 21:11 Sickle Cells Not Reportable 02/27/18 21:11 Target Cells Not Reportable 02/27/18 21:11 Tear Drop Cells Not Reportable 02/27/18 21:11 Ovalocytes Not Reportable 02/27/18 21:11 Helmet Cells Not Reportable 02/27/18 21:11 Pé[place] Bodies Not Reportable 02/27/18 21:11 [place] Rings Not Reportable 02/27/18 21:11 [place] Cells Not Reportable 02/27/18 21:11 Bite Cells Not Reportable 02/27/18 21:11 Crenated Cell Not Reportable 02/27/18 21:11 Elliptocytes Not Reportable 02/27/18 21:11 Acanthocytes (Spur) Not Reportable 02/27/18 21:11 Rouleaux Not Reportable 02/27/18 21:11 Hemoglobin C Crystals Not Reportable 02/27/18 21:11 Schistocytes Not Reportable 02/27/18 21:11 Malaria parasites Not Reportable 02/27/18 21:11 Alvaro Bodies Not Reportable 02/27/18 21:11 Hem Pathologist Commnt No 02/27/18 21:11 POC ABG pH 7.231 (7.35-7.45) L 02/27/18 22:29 POC ABG pCO2 40.5 (35-45) 02/27/18 22:29 POC ABG pO2 80 (80-105) 02/27/18 22:29 POC ABG HCO3 17.0 02/27/18 22:29 POC ABG Total CO2 18 02/27/18 22:29 POC ABG O2 Sat 93 02/27/18 22:29 POC ABG Base Excess -11 02/27/18 22:29 FiO2 32 % 02/27/18 22:29 Sodium 134 mmol/L (137-145) L 02/28/18 06:51 Potassium 4.2 mmol/L (3.6-5.0) 02/28/18 06:51 Chloride 101.0 mmol/L (98-107) 02/28/18 06:51 Carbon Dioxide 17 mmol/L (22-30) L 02/28/18 06:51 Anion Gap 20 mmol/L 02/28/18 06:51 BUN 16 mg/dL (9-20) 02/28/18 06:51 Creatinine 2.0 mg/dL (0.8-1.5) H 02/28/18 06:51 Estimated GFR 50 ml/min 02/28/18 06:51 BUN/Creatinine Ratio 8 % 02/28/18 06:51 Glucose 80 mg/dL (75-100) 02/28/18 06:51 POC Glucose 128 (70-105) H 02/27/18 21:13 Lactic Acid 0.90 mmol/L (0.7-2.0) 02/28/18 06:51 Calcium 8.2 mg/dL (8.4-10.2) L 02/28/18 06:51 Magnesium 3.70 mg/dL (1.7-2.3) H 02/27/18 21:11 Total Creatine Kinase 874 units/L (55-170) H 02/27/18 21:50 Urine Color Yellow (Yellow) 02/27/18 22:50 Urine Turbidity Clear (Clear) 02/27/18 22:50 Urine pH 5.0 (5.0-7.0) 02/27/18 22:50 Ur Specific [place] 1.011 (1.003-1.030) 02/27/18 22:50 Urine Protein 100 mg/dl mg/dL (Negative) 02/27/18 22:50 Urine Glucose (UA) Neg mg/dL (Negative) 02/27/18 22:50 Urine Ketones Neg mg/dL (Negative) 02/27/18 22:50 Urine Blood Mod (Negative) 02/27/18 22:50 Urine Nitrite Neg (Negative) 02/27/18 22:50 Urine Bilirubin Neg (Negative) 02/27/18 22:50 Urine Urobilinogen < 2.0 mg/dL (<2.0) 02/27/18 22:50 Ur Leukocyte Esterase Neg (Negative) 02/27/18 22:50 Urine WBC (Auto) 5.0 /HPF (0.0-6.0) 02/27/18 22:50 Urine RBC (Auto) 2.0 /HPF (0.0-6.0) 02/27/18 22:50 U Epithel Cells (Auto) < 1.0 /HPF (0-13.0) 02/27/18 22:50 Urine Mucus Few /HPF 02/27/18 22:50 Urine Opiates Screen Presumptive negative 02/27/18 22:50 Urine Methadone Screen Presumptive negative 02/27/18 22:50 Ur Barbiturates Screen Presumptive negative 02/27/18 22:50 Ur Phencyclidine Scrn Presumptive negative 02/27/18 22:50 Ur Amphetamines Screen Presumptive negative 02/27/18 22:50 U Benzodiazepines Scrn Presumptive positive 02/27/18 22:50 Urine Cocaine Screen Presumptive positive 02/27/18 22:50 U Marijuana (THC) Screen Presumptive positive 02/27/18 22:50 Drugs of Abuse Note Disclamer 02/27/18 22:50 Plasma/Serum Alcohol < 0.01 % (0-0.07) 02/27/18 21:11
[2018-03-01] MEDS: LEVAQUIN 750MG/150ML 750 MG/150 ML BAG IV SCH (11:31)
[2018-03-01] MEDS: LOVENOX SUB-Q SCH (11:31)
[2018-03-01] MEDS: KEPPRA PO SCH (11:31)
[2018-03-01] MEDS: SODIUM CHLORIDE FLUSH SYRINGE 10 ML IV SCH (11:32)
--- NOTE | 2018-03-01 13:50 | Discharge Summary ---
Providers - Providers Date of Admission: 02/27/18 23:41 Date of discharge: 03/01/18 Attending physician: ENRIQUE PELAEZ Primary care physician: ARCELIA VERONICA Hospitalization Condition: Stable Disposition: DC-01 TO HOME OR SELFCARE Time spent for discharge: 32 min Core Measure Documentation - Palliative Care Palliative Care/ Comfort Measures: Not Applicable - Core Measures Any of the following diagnoses?: none Exam - Constitutional Vitals: Temp Pulse Resp BP Pulse Ox 98.2 F 57 L 20 142/85 98 03/01/18 07:34 03/01/18 07:34 03/01/18 07:34 03/01/18 07:34 03/01/18 09:06 Plan Activity: no driving until cleared by PCP, other Diet: regular Additional Instructions: Do not drive until cleared by primary care physician. Advised to quit recreational drug use. If you have any new episodes of seizure contact M.D. or go to emergency room. Advised to comply with seizure medications Follow up with: ARCELIA VERONICA MD [Primary Care Provider] - 3-5 Days ALICIA NARAYAN MD [Staff Physician] - 3 Days Prescriptions: levETIRAcetam [Keppra] 500 mg PO BID #30 tablet levETIRAcetam [Keppra TAB] 500 mg PO BID #60 tablet oxyCODONE /ACETAMINOPHEN [Percocet 5/325 mg] 1 tab PO Q12H PRN #8 tablet PRN Reason: Pain, Moderate (4-6)
[2018-03-02] MEDS ORDERED: LEVAQUIN PO SCH (10:00)
== END 2018-03-01 15:00 | disposition home or self-care (01) | DRG 871 ==
LOC: ED 20:49 → 3A 23:41
PROVIDERS: ADMIT Internal Medicine; ATTEND Internal Medicine
PROC: 4A033R1 Measurement of Arterial Saturation, Peripheral, Percutaneous Approach (ICD-10-PCS; principal; 2018-02-27)
DX: A41.9 Sepsis, unspecified organism (principal); N17.0 Acute kidney failure with tubular necrosis; M62.82 Rhabdomyolysis; R56.9 Unspecified convulsions; F14.10 Cocaine abuse, uncomplicated; E86.0 Dehydration; D32.9 Benign neoplasm of meninges, unspecified; F19.10 Other psychoactive substance abuse, uncomplicated; Z88.0 Allergy status to penicillin; Z91.14 Patient's other noncompliance with medication regimen; Z71.51 Drug abuse counseling and surveillance of drug abuser
CPT/HCPCS: 36415; 70450; 71045; 80048; 80307; 80320; 81001; 82140; 82550; 82803; 82962; 83735; 85007; 85025; 87040; 87086; G0480; J1650; J1953; J1956; J2405; J7030